=== PATIENT | male | born 1950 | race Caucasian/White ===

== ENCOUNTER 2016-07-30 21:05 | Emergency (ER) | payer OTHER ==
[~2016-07-30 21:05] MED LIST: BACT800T5 PO; CLIN150 PO
[2016-07-30 21:06] VITALS: BP 133/87; PULSE 69; RESP 16; TEMP 98; O2SAT 97
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
== END 2016-07-30 23:55 | disposition home or self-care (01) ==
LOC: NETRI 21:05
DX: S82.832A Other fracture of upper and lower end of left fibula, initial encounter for closed fracture (principal); V18.0XXA Pedal cycle driver injured in noncollision transport accident in nontraffic accident, initial encounter; Y93.55 Activity, bike riding; Y92.9 Unspecified place or not applicable; Y99.9 Unspecified external cause status
CPT/HCPCS: 29515; 73610; E0113